=== PATIENT | female | born 1970 | race Two or more races ===

== ENCOUNTER 2021-10-24 10:21 | Outpatient (CLI) | payer OTHER | END 2021-10-24 10:22 | disposition home or self-care (01) | LOC: NUCLEAR 10:21 | DX: M06.09 Rheumatoid arthritis without rheumatoid factor, multiple sites (principal) ==

== ENCOUNTER → 2021-10-26 07:28 | Outpatient (CLI) | payer OTHER | END | disposition home or self-care (01) | LOC: NUCLEAR 10-18 07:00 | PROVIDERS: ATTEND General Practice | DX: K82.9 Disease of gallbladder, unspecified (principal) ==